=== PATIENT | female | born 1980 | race Caucasian/White ===

== ENCOUNTER 2016-12-15 11:48 | Emergency (ER) | payer OTHER ==
[2016-12-15 12:13] VITALS: BP 110/72
--- NOTE | 2016-12-15 13:49 | UC ---
Upper Extremity HPI - HPI Summary HPI Summary: Patient presents with left shoulder pain which has been worsening over several months. She notes 9/10 pain in the posterior shoulder which radiates anteriorly and down into the bicep and tricep in the upper arm with associated numbness and tingling in the fingers intermittently. She denies trauma or injury. She is otherwise healthy. 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 - History of Current Complaint Chief Complaint: UCUpperExtremity Stated Complaint: LEFT SHOULDER PAIN Time Seen by Provider: 12/15/16 11:59 Hx Obtained From: Patient Hx Last Menstrual Period: "...beginning of the month..." ?: No Onset/Duration: Sudden Onset Severity Initially: Moderate Severity Currently: Moderate Pain Intensity: 2 Pain Scale Used: 0-10 Numeric Location Of Pain: Is Discrete @ - left shoulder pain Aggravating Factor(s): Lifting, Abduction Alleviating Factor(s): Rest Associated Signs And Symptoms: Positive: Weakness, Numbness/Tingling Related History: Dominant Hand Right - Risk Factors Non-Orthopedic Risk Factor: Negative DVT Risk Factors: Negative Septic Arthritis Risk Factor: Negative Compartment Syndrome Risk Factors: Pain, Paresthesias - Allergies/Home Medications Allergies/Adverse Reactions: Allergies Allergy/AdvReac Type Severity Reaction Status Date / Time No Known Allergies Allergy Verified 12/15/16 12:05 PMH/Surg Hx/FS Hx/Imm Hx Previously Healthy: Yes - Surgical History Surgical History: Yes Surgery Procedure, Year, and Place: RIGHT KNEE-1996 [facility] [place]. RIGHT ANKLE-1999 [facility] [place]. TUBAL LIGATION-2011 [place] - Family History Known Family History: Positive: Hypertension - Social History Occupation: Employed Full-time Alcohol Use: Occasionally Alcohol Amount: ONCE EVERY FEW WEEKS Substance Use Type: None Smoking Status (MU): Heavy Every Day Tobacco Smoker Type: Cigarettes Amount Used/How Often: <1 PPD Length of Time of Smoking/Using Tobacco: Since Age 23 Have You Smoked in the Last Year: Yes - Immunization History Most Recent Influenza Vaccination: no Review of Systems Constitutional: Negative Skin: Negative Respiratory: Negative Cardiovascular: Negative Genitourinary: Negative Motor: Decreased ROM, Weakness Neurovascular: Decreased Sensation Musculoskeletal: Arthralgia Neurological: Negative Psychological: Negative All Other Systems Reviewed And Are Negative: Yes Physical Exam Triage Information Reviewed: Yes Appearance: Well-Appearing, No Pain Distress, Well-Nourished Vital Signs: Initial Vital Signs Temp 98.2 F 12/15/16 12:02 Pulse 76 12/15/16 12:02 Resp 16 12/15/16 12:02 BP 110/72 12/15/16 12:02 Pulse Ox 100 12/15/16 12:02 Vital Signs Reviewed: Yes Eye Exam: Normal Eyes: Positive: Conjunctiva Clear Dental Exam: Normal Neck exam: Normal Neck: Positive: Nontender, No Lymphadenopathy Respiratory Exam: Normal Respiratory: Positive: Chest non-tender, Lungs clear Cardiovascular Exam: Normal Cardiovascular: Positive: RRR Musculoskeletal: Positive: Strength Limited @ - right arm abduction, ROM Limited @ - right arm abduction with pain Psychological Exam: Normal Psychological: Positive: Normal Response To Family Skin Exam: Normal Upper Extremity Course/Dx - Course Course Of Treatment: Patient notes to right shoulder pain worsening over several months with associated numbness and tingling intermittently in the fingers on the ipsilateral side. Right hand dominant, but uses her left arm more frequently at work. Patient referred to ortho and treatment options explained. She agrees to continue with ibuprofen and moist heat to the area until follow up. This is likely overuse injury and rest is the ultimate treatment. This was explained to patient, however she states she is unable to change her behavior. She is referred to both Killeen Ayaz and Dr. Strong per patient request. - Differential Dx/Diagnosis Differential Diagnosis/HQI/PQRI: Bursitis, Strain, Sprain Provider Diagnoses: Rotator Cuff Tendonitis Discharge - Discharge Plan Condition: Stable Disposition: HOME Prescriptions: Naproxen TAB* [Naprosyn 375 mg TAB*] 375 mg PO Q8H #30 tab Patient Education Materials: Rotator Cuff Tendinitis (ED) Referrals: Flako Quintanilla MD [Medical Doctor] - Brenda Ayala MD [Primary Care Provider] - Ct Ferguson MD [Medical Doctor] - Additional Instructions: Naproxen 375mg three times daily for pain and inflammation Moist heat to the area Rest as much as possible Follow up with Dr. Ferguson or Dr. Quintanilla office
== END 2016-12-15 12:39 | disposition home or self-care (01) ==
LOC: UCCORT 11:48
DX: M75.91 Shoulder lesion, unspecified, right shoulder (principal); F17.210 Nicotine dependence, cigarettes, uncomplicated
CPT/HCPCS: 99212; G0463

== ENCOUNTER → 2017-06-06 07:14 | Day surgery (SDC) | payer OTHER ==
[~2017-06-06 07:14] MED LIST: Acetaminophen TAB* 325 MG PO PRN; Buffered Lidocaine 0.9% SYRIN* 5 ML/SYR SYRINGE INTRADERM ONE; Buffered Lidocaine 0.9% SYRIN* 5 ML/SYR SYRINGE ONE; DiMENhydriNATE IV* 50 MG/ML VIAL IV PUSH PRN; Famotidine IV* 10 MG/ML 2 ML (20 mg) IV ONE; Famotidine IV* 10 MG/ML 2 ML (20 mg) ONE; Ibuprofen TAB* 600 MG PO PRN; Ondansetron INJ* 2 MG/ML VIAL IV PRN; ceFAZolin 2 GM PREMIX (*) 2 GM/50 ML BAG IVPB ONE; oxyCODONE TAB* 5 MG TAB PO PRN; oxyCODONE/Acetamin 5/325 MG* TAB PO PRN
[2017-06-06 08:18] LABS: Hematocrit 35 % (35-47); Hemoglobin 11.5 g/dl (12.0-16.0); Mean Corpuscular HGB Conc 33 g/dl (31-36); Mean Corpuscular Hemoglobin 28 pg (27-31); Mean Corpuscular Volume 84 fL (80-97); Mean Platelet Volume 8 um3 (7.4-10.4); Red Blood Count 4.17 10^6/ul (4.0-5.4); Red Cell Distribution Width 16 % (10.5-15); White Blood Count 4.9 10^3/ul (3.5-10.8)
[2017-06-06 10:34] VITALS: BP 109/67
--- NOTE | 2017-06-07 01:35 | OP ---
DATE OF OPERATION: 06/06/17 - [facility] DATE OF : 84 SURGEON: Danyel Dwyer MD ANESTHESIOLOGIST: Stephanie Hollis MD ANESTHESIA: General endotracheal anesthesia. PRE-OP DIAGNOSES: Menorrhagia and dysmenorrhea. POST-OP DIAGNOSIS: Menorrhagia and dysmenorrhea. OPERATIVE PROCEDURE: Dilation hysteroscopy, curettage, NovaSure ablation. ESTIMATED BLOOD LOSS: Minimal. FINDINGS: Small retroverted uterus. There is prolapse down to a third degree with complete relaxation with anesthesia. The endometrium appeared atrophic throughout. Both tubal ostia were visualized. Cervix measured 5. The uterus sounds to 9. The cavity length was 4. The cavity width was 4.5. The power was 99 and the time was 90 seconds. Excellent ablation was seen on hysteroscopy after the NovaSure ablation. No adnexal masses were palpated. COMPLICATIONS: None. SPONGE COUNT: Correct x2. CONDITION: The patient was brought to recovery room, awake and in stable condition. DESCRIPTION OF PROCEDURE: The patient was brought to the operating room. When general anesthesia was found to be adequate, the patient was prepped and draped in the usual sterile fashion in the dorsal lithotomy position. Exam under anesthesia was performed with the above findings noted. Cervix was gently and easily dilated. The hysteroscope was introduced with the above findings noted. The hysteroscope was removed. Curettage was performed. Endometrial curettings were sent to Pathology. The NovaSure ablation was then performed. Hysteroscopy was performed and an excellent result was seen throughout the cavity. The hysteroscope was removed. The single-tooth tenaculum was removed from the anterior lip of the cervix. Excellent hemostasis was noted and the patient was brought to recovery room awake and in stable condition. [id number]/CPS #: [id number] MTDD
== END | disposition home or self-care (01) ==
LOC: OR 07:14
PROVIDERS: ATTEND Obstetrics & Gynecology
DX: N92.0 Excessive and frequent menstruation with regular cycle (principal); N94.5 Secondary dysmenorrhea; F17.210 Nicotine dependence, cigarettes, uncomplicated
CPT/HCPCS: 36415; 81025; 85025; 86850; 86900; 86901; 88305; 88342; J0690

== ENCOUNTER 2018-05-03 09:05 | Emergency (ER) | payer OTHER ==
[2018-05-03 09:47] VITALS: BP 108/58
--- NOTE | 2018-05-03 10:05 | UC ---
Ear Complaint HPI - HPI Summary HPI Summary: The patient is a 38-year-old female that presents here with nasal congestion postnasal drip mild cough and bilateral ear fullness for approximately 2 weeks. She has had no fever or chills. - History of Current Complaint Chief Complaint: UCRespiratory Stated Complaint: CONGESTION,EARS Time Seen by Provider: 05/03/18 09:27 Hx Obtained From: Patient Hx Last Menstrual Period: pt had an ablasion and states not getting a menses Onset/Duration: Sudden Onset Severity Initially: Mild Severity Currently: Mild Pain Intensity: 0 Pain Scale Used: 0-10 Numeric Aggravating Factors: Nothing Alleviating Factors: Nothing Associated Signs/Symptoms: Positive: URI Symptoms - Allergies/Home Medications Allergies/Adverse Reactions: Allergies Allergy/AdvReac Type Severity Reaction Status Date / Time No Known Allergies Allergy Verified 06/06/17 07:45 PMH/Surg Hx/FS Hx/Imm Hx Previously Healthy: Yes - Surgical History Surgical History: Yes Surgery Procedure, Year, and Place: RIGHT KNEE-1996 [facility] – [place]. RIGHT ANKLE-1999 [facility] [place]. TUBAL LIGATION-2011 [place]. Uterine ablasion 2016 - Family History Known Family History: Positive: Cardiac Disease, Hypertension, Diabetes, Other - [place] - Social History Alcohol Use: Occasionally Alcohol Amount: ONCE EVERY FEW WEEKS Substance Use Type: None Smoking Status (MU): Heavy Every Day Tobacco Smoker Type: Cigarettes Amount Used/How Often: 1/2 PPD Length of Time of Smoking/Using Tobacco: since age 22 Have You Smoked in the Last Year: Yes - Immunization History Most Recent Influenza Vaccination: no Review of Systems All Other Systems Reviewed And Are Negative: Yes Constitutional: Positive: Negative Skin: Positive: Negative Eyes: Positive: Photophobia ENT: Positive: Ear Ache, Nasal Discharge, Sinus Congestion Respiratory: Positive: Cough Cardiovascular: Positive: Negative Gastrointestinal: Positive: Negative Genitourinary: Positive: Negative Motor: Positive: Negative Neurovascular: Positive: Negative Musculoskeletal: Positive: Negative Neurological: Positive: Negative Psychological: Positive: Negative Is Patient Immunocompromised?: Yes Physical Exam Triage Information Reviewed: Yes Appearance: Well-Appearing, No Pain Distress, Well-Nourished Vital Signs: Initial Vital Signs Temp 98.8 F 05/03/18 09:41 Pulse 72 05/03/18 09:41 Resp 14 05/03/18 09:41 BP 108/58 05/03/18 09:41 Pulse Ox 100 05/03/18 09:41 Eye Exam: Normal Eyes: Positive: Conjunctiva Clear ENT: Positive: Nasal congestion, TM bulging, Uvula midline. Negative: Hearing grossly normal, Nasal drainage, Tonsillar swelling, Tonsillar exudate, Trismus, Muffled voice, Hoarse voice, Dental tenderness, Sinus tenderness Neck: Positive: Supple, Nontender, No Lymphadenopathy Respiratory: Positive: Lungs clear, Normal breath sounds, No respiratory distress Cardiovascular: Positive: RRR, No Murmur, Pulses Normal Musculoskeletal: Positive: ROM Intact, No Edema Neurological: Positive: Alert Psychological Exam: Normal Skin Exam: Normal Ear Complaint Course/Dx - Differential Dx/Diagnosis Provider Diagnoses: bilateral serous otitis media Discharge - Sign-Out/Discharge Documenting (check all that apply): Patient Departure All imaging exams completed and their final reports reviewed: No Studies - Discharge Plan Condition: Stable Disposition: HOME Prescriptions: Fluticasone NASAL SPRAY 50MCG* [Flonase NASAL SPRAY 50MCG*] 2 spray BOTH NARES BID #1 btl Patient Education Materials: Serous Otitis Media (ED) Referrals: Mary Anne Wilkes MD [Primary Care Provider] - 2 Weeks (if hearing not back to normal) Additional Instructions: recheck for new or worsening symptoms - Billing Disposition and Condition Condition: STABLE Disposition: Home
== END 2018-05-03 10:13 | disposition home or self-care (01) ==
LOC: UCCORT 09:05
DX: H65.93 Unspecified nonsuppurative otitis media, bilateral (principal); F17.210 Nicotine dependence, cigarettes, uncomplicated
CPT/HCPCS: 99212; G0463

== ENCOUNTER 2018-06-23 11:23 | Emergency (ER) | payer OTHER ==
[2018-06-23 11:57] VITALS: BP 118/68
--- NOTE | 2018-06-23 12:07 | UC ---
Ear Complaint HPI - HPI Summary HPI Summary: bilateral ear pain x 4 days no cold symptoms , no fever, no chills + ringing in both ears , difficulty hearing - History of Current Complaint Chief Complaint: UCEar Stated Complaint: EAR PAIN Time Seen by Provider: 06/23/18 12:00 Hx Obtained From: Patient Hx Last Menstrual Period: 2017 ?: No Onset/Duration: Gradual Onset, Lasting Days - 4, Still Present Severity Initially: Moderate Severity Currently: Moderate Pain Intensity: 4 Aggravating Factors: Nothing Alleviating Factors: Nothing Associated Signs/Symptoms: Positive: Hearing Loss. Negative: Discharge, Foreign Body Sensation, Trauma to Ear, Swelling @, URI Symptoms - Allergies/Home Medications Allergies/Adverse Reactions: Allergies Allergy/AdvReac Type Severity Reaction Status Date / Time No Known Allergies Allergy Verified 06/23/18 11:58 Home Medications: Home Medications Ibuprofen TAB* [Motrin TAB* 400 MG] 400 mg PO DAILY PRN 06/23/18 [History Confirmed 06/23/18] PMH/Surg Hx/FS Hx/Imm Hx Previously Healthy: Yes - Surgical History Surgical History: Yes Surgery Procedure, Year, and Place: RIGHT KNEE-1996 [facility]. RIGHT ANKLE-1999 [facility] [place]. TUBAL LIGATION-2011 [place]. Uterine ablation 2016 - Family History Known Family History: Positive: Cardiac Disease, Hypertension, Diabetes, Other - [place] - Social History Alcohol Use: Occasionally Alcohol Amount: ONCE EVERY FEW WEEKS Substance Use Type: None Smoking Status (MU): Heavy Every Day Tobacco Smoker Type: Cigarettes Amount Used/How Often: 1/2 PPD Length of Time of Smoking/Using Tobacco: since age 22 Have You Smoked in the Last Year: Yes - Immunization History Most Recent Influenza Vaccination: no Review of Systems All Other Systems Reviewed And Are Negative: Yes Constitutional: Positive: Negative Skin: Positive: Negative Eyes: Positive: Negative ENT: Positive: Ear Ache Respiratory: Positive: Negative Cardiovascular: Positive: Negative Is Patient Immunocompromised?: No Physical Exam Triage Information Reviewed: Yes Appearance: Well-Appearing, No Pain Distress, Well-Nourished Vital Signs: Initial Vital Signs Temp 98.9 F 06/23/18 11:53 Pulse 77 06/23/18 11:53 Resp 18 06/23/18 11:53 BP 118/68 06/23/18 11:53 Pulse Ox 100 06/23/18 11:53 Vital Signs Reviewed: Yes Eye Exam: Normal Eyes: Positive: Conjunctiva Clear ENT: Positive: Normal ENT inspection, Hearing grossly normal, Pharynx normal, TMs normal. Negative: Pharyngeal erythema, Nasal congestion, Nasal drainage, TM bulging, TM dull, TM red, Tonsillar swelling, Tonsillar exudate Neck: Positive: Supple, Nontender, No Lymphadenopathy Respiratory: Positive: Chest non-tender, Lungs clear, Normal breath sounds Cardiovascular: Positive: RRR, No Murmur, Pulses Normal Abdominal Exam: Normal Skin Exam: Normal Ear Complaint Course/Dx - Differential Dx/Diagnosis Provider Diagnosis: Otalgia of both ears Discharge - Sign-Out/Discharge Documenting (check all that apply): Patient Departure All imaging exams completed and their final reports reviewed: No Studies - Discharge Plan Condition: Stable Disposition: HOME Prescriptions: Fluticasone NASAL SPRAY 50MCG* [Flonase NASAL SPRAY 50MCG*] 2 spray BOTH NARES DAILY #1 btl Patient Education Materials: Earache (ED) Referrals: Roberto Lockhart MD [Primary Care Provider] - 7 Days - Billing Disposition and Condition Condition: STABLE Disposition: Home
== END 2018-06-23 12:09 | disposition home or self-care (01) ==
LOC: UCCORT 11:23
DX: H92.03 Otalgia, bilateral (principal); F17.210 Nicotine dependence, cigarettes, uncomplicated
CPT/HCPCS: 99212; G0463

== ENCOUNTER 2019-04-11 10:19 | Emergency (ER) | payer OTHER ==
[2019-04-11 10:32] VITALS: BP 100/68
--- NOTE | 2019-04-11 10:56 | UC ---
Hand/Wrist HPI - HPI Summary HPI Summary: Pt presents with c/o right wrist aching X 1 month. Pt denies past or present injury. Pt does not type daily or use her wrist in extended activities. - History Of Current Complaint Chief Complaint: UCUpperExtremity Stated Complaint: R WRIST AND HAND PAIN Time Seen by Provider: 04/11/19 10:32 Hx Obtained From: Patient Hx Last Menstrual Period: ablation 05/2017 ?: No Onset/Duration: Gradual Onset, Lasting Weeks, Still Present Severity Initially: Mild Severity Currently: Mild Pain Intensity: 4 Character Of Pain: Dull, Aching Aggravating Factor(s): Movement Alleviating Factor(s): Rest Associated Signs And Symptoms: Positive: Negative Related History: Dominant Hand Right - Risk Factors Compartment Syndrome Risk Factors: Pain - Allergies/Home Medications Allergies/Adverse Reactions: Allergies Allergy/AdvReac Type Severity Reaction Status Date / Time No Known Allergies Allergy Verified 04/11/19 10:28 PMH/Surg Hx/FS Hx/Imm Hx Previously Healthy: Yes - Surgical History Surgical History: Yes Surgery Procedure, Year, and Place: RIGHT KNEE-1996 [facility]. RIGHT ANKLE-1999 [facility]. RIGHT INDEX FINGER [place]. TUBAL LIGATION-2011 [place]. Uterine ablation 2016 - Family History Known Family History: Positive: Cardiac Disease, Hypertension, Diabetes, Other - [place] - Social History Occupation: Employed Full-time Lives: With Family Alcohol Use: Occasionally Alcohol Amount: ONCE EVERY FEW WEEKS Substance Use Type: None Smoking Status (MU): Heavy Every Day Tobacco Smoker Type: Cigarettes Amount Used/How Often: 1/2 PPD Length of Time of Smoking/Using Tobacco: since age 22 Have You Smoked in the Last Year: Yes - Immunization History Most Recent Influenza Vaccination: no Review of Systems All Other Systems Reviewed And Are Negative: Yes Constitutional: Positive: Negative Skin: Positive: Negative Eyes: Positive: Negative ENT: Positive: Negative Respiratory: Positive: Negative Cardiovascular: Positive: Negative Gastrointestinal: Positive: Negative Genitourinary: Positive: Negative Motor: Positive: Negative Neurovascular: Positive: Negative Musculoskeletal: Positive: Arthralgia - right wrist Neurological: Positive: Negative Psychological: Positive: Negative Is Patient Immunocompromised?: No Physical Exam Triage Information Reviewed: Yes Appearance: Well-Appearing, No Pain Distress Vital Signs: Initial Vital Signs Temp 98.4 F 04/11/19 10:29 Pulse 81 04/11/19 10:29 Resp 14 04/11/19 10:29 BP 100/68 04/11/19 10:29 Pulse Ox 99 04/11/19 10:29 Vital Signs Reviewed: Yes Eye Exam: Normal ENT Exam: Normal Dental Exam: Normal Neck exam: Normal Respiratory: Positive: No respiratory distress Musculoskeletal Exam: Normal Musculoskeletal: Positive: Strength Intact, ROM Intact, No Edema Neurological Exam: Normal Psychological Exam: Normal Skin Exam: Normal Diagnostics - Radiology No standard instances Radiology Interpretation Completed By: Radiologist - Cover Mat Machine Operator: Sander Markham C, ([id number]) Senior Partner: TETE (NUANCE) Report Date: 10:45:00 Report Status: Final Start of Report Content = Patient Name: DAYRON BYRNE Medical Record#: [id number] Ordering Physician: Noa Alarcon NEGATIVE TURNER APPRENTICE Acct.#: [id number] : 1980 Age: 39 Sex: F Location: [facility] Exam Date: 04/11/19 1045 ADM Status: REG ER Order Information: WRIST RIGHT 3+ VWS Accession Number: [id number] CPT: 59915 INDICATION: RIGHT wrist pain over the carpals for one month. COMPARISON: November TECHNIQUE: AP, lateral, and oblique views RIGHT wrist. REPORT: Normal articular alignment and preserved joint spaces. No arthropathic change evident. Negative for fracture or focal osseous lesions. Unremarkable soft tissue contours. IMPRESSION: #. Negative exam. <Electronically signed by Sander Markham MD in OV> [id number] Dictated By: Sander Markham MD Dictated Date/Time: 04/11/191100 Transcribed Date/Time: 04/11/191100 Copy to: CC:Roberto Lockhart MD; Noa Garza NEGATIVE TURNER APPRENTICE; Sulaiman Mehta MD Imaging - [facility] - [facility] - [facility] [address] [facility] [address] [place] [place] [id number] [place] [id number] [place] [id number] ph [phone] ph ([phone] ([phone]) End of Report Content Hand/Wrist Course/Dx - Differential Dx/Diagnosis Differential Diagnosis/HQI/PQRI: Contusion, Tendonitis Provider Diagnosis: Right wrist pain Discharge ED - Sign-Out/Discharge Documenting (check all that apply): Patient Departure All imaging exams completed and their final reports reviewed: Yes - Discharge Plan Condition: Stable Disposition: HOME Patient Education Materials: Arthralgia (ED) Referrals: Roberto Lockhart MD [Primary Care Provider] - If Needed Adriel Uriarte MD [Medical Doctor] - - Billing Disposition and Condition Condition: STABLE Disposition: Home
== END 2019-04-11 11:22 | disposition home or self-care (01) ==
LOC: UCCORT 10:19
DX: M25.531 Pain in right wrist (principal); F17.210 Nicotine dependence, cigarettes, uncomplicated
CPT/HCPCS: 99211; G0463